=== PATIENT | male | born 1970 | race Hispanic/Latino ===

== ENCOUNTER 2016-12-16 08:41 | Outpatient (CLI) | payer BC ==
--- NOTE | 2016-12-16 14:17 | Ultrasound Report ---
RENAL ULTRASOUND: 12/16/16 CLINICAL: Chronic kidney disease. Right kidney donor. FINDINGS: High resolution ultrasound demonstrated a normal nondilated renal collecting system and ureter. Normal echogenicity of the kidney. Mild renal cortical irregularity. No renal mass, cyst or calculus. The kidney measures 12.4 x 5.9 x 5.7-cm. The renal parenchyma measures 1.5-cm in thickness. A normal mildly distended urinary bladder. IMPRESSION: A normal size kidney with mild renal cortical irregularity and no hydronephrosis.
== END 2016-12-16 08:42 | disposition home or self-care (01) ==
LOC: SPVWC 08:41
PROVIDERS: ATTEND Internal Medicine
DX: N18.1 Chronic kidney disease, stage 1 (principal); N32.89 Other specified disorders of bladder; Z52.4 Kidney donor
CPT/HCPCS: 76775

== ENCOUNTER 2021-10-15 09:33 | Outpatient (CLI) | payer BC ==
[2021-10-15 12:21] LABS: Bilirubin,Urine NEG (Negative); Blood,Urine NEG (Negative); Color,Urine Straw (Yellow); Hematocrit 51.8 % (35.5-45.6); Hemoglobin 17.7 gm/dl (11.8-15.2); Mean Corpuscular HGB Conc 34 % (32-34); Mean Corpuscular Volume 88 fl (84-94); Platelet Count 232 K/mm3 (140-440); Protein,Urine <15 mg/dL mg/dL (Negative); Red Blood Count 5.91 M/mm3 (3.65-5.03); Red Cell Distribution Width 13.3 % (13.2-15.2); Urobilinogen,Urine < 2.0 mg/dL (<2.0); WBC,Urine < 1.0 /HPF (0.0-6.0)
[2021-10-15 14:24] LABS: Albumin 4.7 g/dL (3.9-5); Calcium 9.9 mg/dL (8.4-10.2); Chol/HDL Ratio 6.45 %
== END 2021-10-15 09:34 | disposition home or self-care (01) ==
LOC: LABHHL 09:33
PROVIDERS: ATTEND Internal Medicine
DX: Z00.00 Encounter for general adult medical examination without abnormal findings (principal); E78.5 Hyperlipidemia, unspecified; R73.9 Hyperglycemia, unspecified; E55.9 Vitamin D deficiency, unspecified; E66.09 Other obesity due to excess calories; R42 Dizziness and giddiness; R35.1 Nocturia
CPT/HCPCS: 36415; 80053; 80061; 81001; 82306; 83036; 84153; 84443; 85027